=== PATIENT | female | born 1960 | race Caucasian/White ===

== ENCOUNTER 2017-04-05 12:47 | Emergency (ER) | payer BC ==
[~2017-04-05] VITALS: Ht 160 cm; Wt 70.0 kg
[~2017-04-05 12:47] MED LIST: ASPI81CH37 CHEW; VALS80TA2 PO
[2017-04-05 12:50] VITALS: BP 201/121; PULSE 84; RESP 20; TEMP 97.9; O2SAT 98
--- NOTE | 2017-04-05 12:54 | PD ---
Physical Exam Date Seen by Provider: Apr 05, 2017 Time Seen by Provider: 12:49 Narrative 57 yo female here for sinus headache. She believes she is having sinus headache but was seen at Urgent care and sent here for evaluation due to elevated BP. No other medical issues. Has headache. Started on new med recently. Vitals are stable in triage. Awaiting bed placement. [facility] Medical Record Reviewed: Yes Supervised Visit with JOSE: No Puma [place] Apr 05, 2017 12:54
[2017-04-05 13:54] VITALS: BP_SYST 197; BP_SYST 200; BP_DIAS 97; BP_DIAS 98; PULSE 60; RESP 16; O2SAT 100
[2017-04-05] MEDS ORDERED: SODIUM CHLORIDE 0.9% FLUSH 10 ML FLUSH IVF PRN (14:00)
[2017-04-05] MEDS ORDERED: cloNIDine HCL 0.1 MG TAB PO ONE (14:00)
[2017-04-05] MEDS ORDERED: VALS160T4 PO (14:02)
[2017-04-05] MEDS ORDERED: KETOROLAC TROMETHAMINE 30 MG/ML (IVP) VIAL IV PUSH ONE (14:15)
[2017-04-05 14:30] LABS: AUTOMATED NEUTROPHIL # 2.8 TH/MM3 (1.8-7.7); BASOPHIL % 0.8 % (0.0-2.0); EOSINOPHIL # 0.2 TH/MM3 (0-0.4); EOSINOPHIL % 3.2 % (0.0-4.0); HEMATOCRIT 41.6 % (35.0-46.0); HEMO FLAGS DIFF FINAL; LYMPH % 33.8 % (9.0-44.0); LYMPHOCYTE # 1.8 TH/MM3 (1.0-4.8); MEAN CELL VOLUME 91.2 FL (80.0-100.0); MEAN CORPUSCULAR HEMOGLOBIN 31.4 PG (27.0-34.0); MEAN CORPUSCULAR HGB CONC 34.4 % (32.0-36.0); MONO % 8.8 % (0.0-8.0); NEUT % 53.4 % (16.0-70.0); PLATELET COUNT 325 TH/MM3 (150-450); RED BLOOD COUNT 4.56 MIL/MM3 (4.00-5.30); RED CELL DISTRIBUTION WIDTH 12.6 % (11.6-17.2); WHITE BLOOD COUNT 5.2 TH/MM3 (4.0-11.0)
[2017-04-05] MEDS ORDERED: AUGM875T3 PO (14:31)
--- NOTE | 2017-04-05 14:32 | PD ---
HPI Chief Complaint: Headache Time Seen by Provider: 13:49 Travel History International Travel<30 days: No Contact w/Intl Traveler<30days: No Traveled to known affect area: No History of Present Illness HPI Patient is a 57-year-old female who was sent to the emergency room by urgent care for evaluation of hypertension. Patient reports that she has been having increased sinus pressure with increased nasal congestion for the past few days, reports that she is a dry nonproductive cough. Patient reports that everyone and sick is sick with a viral syndrome, reports that she went to the urgent care center as she wanted to get ahead of her symptoms. Patient was found to have high blood pressure while at the urgent care center. Patient reports that she started Valsartan/hctz less than 90 days ago by her pcp. Reports that she was told that she could not be discharged safely from urgent care unless her blood pressure was better. Patient eventually was told to come to the ER for further care. Patient at this point reports frontal headache, denies any photophobia, denies any fevers or chills. Patient denies any nuchal rigidity. Patient reports that "I really feel fine, I just feel congested and I my sinuses are congested." PFSH Past Medical History Diminished Hearing: No Hypertension: Yes Tetanus Vaccination: Unknown Influenza Vaccination: Yes ?: Not Menopausal: Yes Past Surgical History Appendectomy: Yes Social History Alcohol Use: Yes (1 glass wine per day) Tobacco Use: No Substance Use: No Allergies-Medications (Allergen,Severity, Reaction): Coded Allergies: No Known Allergies (Unverified , 04/05/17) Reported Meds & Prescriptions Reported Meds & Active Scripts Active Augmentin (Amoxicillin-Clavulanate) 875-125 Mg Tab 1 Tab PO BID 10 Days Reported Valsartan-Hydrochlorothiazide 160-12.5 Mg Tab 1 Tab PO DAILY Aspirin Low Dose (Aspirin) 81 Mg Chew 81 Mg CHEW DAILY Review of Systems General / Constitutional: No: Fever, Chills Eyes: No: Visual changes HENT: Positive: Headaches, Rhinorrhea, Congestion, No: Neck Pain, Masses Cardiovascular: No: Chest Pain or Discomfort Respiratory: Positive: Cough (nonproductive cough), No: Shortness of Breath Gastrointestinal: No: Abdominal Pain Genitourinary: No: Dysuria Musculoskeletal: No: Pain Skin: No Rash Neurologic: Positive: Headache, No: Weakness, Dizziness, Syncope, Focal Abnormalities, Coordination Problem Psychiatric: No: Depression Endocrine: No: Polydipsia Hematologic/Lymphatic: No: Easy Bruising Physical Exam Narrative GENERAL: mild distress SKIN: Focused skin assessment warm/dry. patient with increased frontal and maxillary sinus congestion HEAD: Atraumatic. Normocephalic. EYES: Pupils equal and round. No scleral icterus. No injection or drainage. ENT: No nasal bleeding or discharge. Mucous membranes pink and moist. NECK: Trachea midline. No JVD. CARDIOVASCULAR: Regular rate and rhythm. No murmur appreciated. RESPIRATORY: No accessory muscle use. Clear to auscultation. Breath sounds equal bilaterally. GASTROINTESTINAL: Abdomen soft, non-tender, nondistended. Hepatic and splenic margins not palpable. MUSCULOSKELETAL: No obvious deformities. No clubbing. No cyanosis. No edema. NEUROLOGICAL: Awake and alert. No obvious cranial nerve deficits. Motor grossly within normal limits. Normal speech. CN 2-12 grossly intact with no neurological deficits PSYCHIATRIC: Appropriate mood and affect; insight and judgment normal. Data Data Last Documented VS Vital Signs Date Time Temp Pulse Resp B/P Pulse Ox O2 Delivery O2 Flow Rate FiO2 04/05/17 15:20 62 16 157/85 99 Room Air 04/05/17 12:50 97.9 Orders Complete Blood Count With Diff (04/05/17 13:49) Basic Metabolic Panel (Bmp) (04/05/17 13:49) Prothrombin Time / Inr (Pt) (04/05/17 13:49) Act Partial Throm Time (Ptt) (04/05/17 13:49) Ecg Monitoring (04/05/17 13:49) Iv Access Insert/Monitor (04/05/17 13:49) Oximetry (04/05/17 13:49) Sodium Chloride 0.9% Flush (Ns Flush) (04/05/17 14:00) Clonidine (Catapres) (04/05/17 14:00) Ketorolac Inj (Toradol Inj) (04/05/17 14:15) Amoxicil-Clavulanate (Augmentin) (04/05/17 15:30) Labs Laboratory Tests Test 04/05/17 14:00 White Blood Count 5.2 TH/MM3 Red Blood Count 4.56 MIL/MM3 Hemoglobin 14.3 GM/DL Hematocrit 41.6 % Mean Corpuscular Volume 91.2 FL Mean Corpuscular Hemoglobin 31.4 PG Mean Corpuscular Hemoglobin 34.4 % Concent Red Cell Distribution Width 12.6 % Platelet Count 325 TH/MM3 Mean Platelet Volume 6.8 FL Neutrophils (%) (Auto) 53.4 % Lymphocytes (%) (Auto) 33.8 % Monocytes (%) (Auto) 8.8 % Eosinophils (%) (Auto) 3.2 % Basophils (%) (Auto) 0.8 % Neutrophils # (Auto) 2.8 TH/MM3 Lymphocytes # (Auto) 1.8 TH/MM3 Monocytes # (Auto) 0.5 TH/MM3 Eosinophils # (Auto) 0.2 TH/MM3 Basophils # (Auto) 0.0 TH/MM3 CBC Comment DIFF FINAL Differential Comment Prothrombin Time 10.5 SEC Prothromb Time International 1.0 RATIO Ratio Activated Partial 23.0 SEC Thromboplast Time Sodium Level 135 MEQ/L Potassium Level 3.6 MEQ/L Chloride Level 100 MEQ/L Carbon Dioxide Level 26.7 MEQ/L Anion Gap 8 MEQ/L Blood Urea Nitrogen 11 MG/DL Creatinine 0.64 MG/DL Estimat Glomerular Filtration 95 ML/MIN Rate Random Glucose 101 MG/DL Calcium Level 9.4 MG/DL MDM Medical Decision Making Medical Screen Exam Complete: Yes Emergency Medical Condition: Yes Interpretation(s) Vital Signs Date Time Temp Pulse Resp B/P Pulse Ox O2 Delivery O2 Flow Rate FiO2 04/05/17 13:54 60 16 197/97 100 Room Air 200/98 04/05/17 13:54 100 Room Air 04/05/17 13:54 100 Room Air 04/05/17 12:50 97.9 84 20 201/121 98 Room Air Differential Diagnosis Differential includes allergic rhinitis, sinusitis, accelerated hypertension, viral syndrome, pneumonia Narrative Course Patient is a 57-year-old female who presents to emergency room with complaints of frontal headache with increased sinus congestion, postnasal drip and nonproductive cough. Patient reports that symptoms have been ongoing for the past few days, reports that everyone work is sick with similar symptoms. She was initially seen at urgent care center, sent to the emergency room as her blood pressure was elevated with systolics in the 190s. Patient reports that she was recently started on antihypertensives less than 90 days ago by her primary care doctor, she is compliant with her medications and does take her medications every night as directed. On physical exam, patient is nontoxic, she has increased tenderness to her frontal and maxillary sinuses. Her exam is consistent with acute sinusitis. Plan to obtain basic blood work, will treat her sinusitis with Augmentin. Patient understands need to monitor her blood pressure as she may need medication adjustment if her blood pressure remains elevated. Laboratory Tests Test 04/05/17 14:00 White Blood Count 5.2 TH/MM3 (4.0-11.0) Red Blood Count 4.56 MIL/MM3 (4.00-5.30) Hemoglobin 14.3 GM/DL (11.6-15.3) Hematocrit 41.6 % (35.0-46.0) Mean Corpuscular Volume 91.2 FL (80.0-100.0) Mean Corpuscular Hemoglobin 31.4 PG (27.0-34.0) Mean Corpuscular Hemoglobin 34.4 % Concent (32.0-36.0) Red Cell Distribution Width 12.6 % (11.6-17.2) Platelet Count 325 TH/MM3 (150-450) Mean Platelet Volume 6.8 FL (7.0-11.0) Neutrophils (%) (Auto) 53.4 % (16.0-70.0) Lymphocytes (%) (Auto) 33.8 % (9.0-44.0) Monocytes (%) (Auto) 8.8 % (0.0-8.0) Eosinophils (%) (Auto) 3.2 % (0.0-4.0) Basophils (%) (Auto) 0.8 % (0.0-2.0) Neutrophils # (Auto) 2.8 TH/MM3 (1.8-7.7) Lymphocytes # (Auto) 1.8 TH/MM3 (1.0-4.8) Monocytes # (Auto) 0.5 TH/MM3 (0-0.9) Eosinophils # (Auto) 0.2 TH/MM3 (0-0.4) Basophils # (Auto) 0.0 TH/MM3 (0-0.2) CBC Comment DIFF FINAL Differential Comment Prothrombin Time 10.5 SEC (9.8-11.6) Prothromb Time International 1.0 RATIO Ratio Activated Partial 23.0 SEC Thromboplast Time (24.3-30.1) Sodium Level 135 MEQ/L (136-145) Potassium Level 3.6 MEQ/L (3.5-5.1) Chloride Level 100 MEQ/L (98-107) Carbon Dioxide Level 26.7 MEQ/L (21.0-32.0) Anion Gap 8 MEQ/L (5-15) Blood Urea Nitrogen 11 MG/DL (7-18) Creatinine 0.64 MG/DL (0.50-1.00) Estimat Glomerular Filtration 95 ML/MIN (>89) Rate Random Glucose 101 MG/DL (74-106) Calcium Level 9.4 MG/DL (8.5-10.1) Vital Signs Date Time Temp Pulse Resp B/P Pulse Ox O2 Delivery O2 Flow Rate FiO2 04/05/17 15:20 62 16 157/85 99 Room Air 04/05/17 13:54 60 16 197/97 100 Room Air 200/98 04/05/17 13:54 100 Room Air 04/05/17 13:54 100 Room Air 04/05/17 12:50 97.9 84 20 201/121 98 Room Air Signs and symptoms of when to return to ER was reviewed with patient in detail. Patient with no c/o at this time, reports resolution of symptoms. Plan to treat for sinusitis. She will follow up with her pcp for bp recheck and branden return to ER as needed Diagnosis Primary Impression: Sinusitis Qualified Code: J01.10 - Acute non-recurrent frontal sinusitis Additional Impression: Hypertension Qualified Code: I10 - Essential hypertension Patient Instructions: General Instructions Additional Instructions: Please follow up with your primary care doctor Return to ER as needed Take all medications as prescribed Please have your primary care doctor recheck your blood pressure as it was elevated today Med/Other Pt SpecificInfo: Prescription(s) given Scripts Amoxicillin-Clavulanate (Augmentin)875-125 Mg Tab1 Tab PO BID 10 Days Ref 0 Prov:Bryanna Coon DO 04/05/17 Disposition: 01 DISCHARGE HOME Condition: Stable Bryanna Coon DO Apr 05, 2017 14:32 Bryanna Coon DO Apr 05, 2017 14:32
[2017-04-05 14:37] LABS: PROTHROMBIN TIME - PATIENT 10.5 SEC (9.8-11.6)
[2017-04-05 14:41] LABS: BICARBONATE 26.7 MEQ/L (21.0-32.0); POTASSIUM 3.6 MEQ/L (3.5-5.1)
[2017-04-05 15:20] VITALS: BP 157/85; PULSE 62; RESP 16; O2SAT 99
[2017-04-05] MEDS ORDERED: AMOXICILLIN/CLAVULANATE K 875 MG TAB PO ONE (15:30)
[2017-04-05 15:56] VITALS: BP 144/79
== END 2017-04-05 16:07 | disposition home or self-care (01) ==
LOC: NEPD 12:47
DX: J01.10 Acute frontal sinusitis, unspecified (principal); I10 Essential (primary) hypertension; Z79.82 Long term (current) use of aspirin
CPT/HCPCS: 80048; 85025; 85610; 85730; 96374; 99284; J1885